=== PATIENT | male | born 1940 | race Caucasian/White ===

== ENCOUNTER 2017-01-25 18:02 | Emergency (ER) | payer MEDICARE ==
[~2017-01-25] VITALS: Ht 170.2 cm; Wt 78.0 kg
[2017-01-25 21:38] VITALS: BP 128/66
== END 2017-01-25 21:41 | disposition home or self-care (01) ==
LOC: ED 21:00
DX: F10.120 Alcohol abuse with intoxication, uncomplicated (principal); I10 Essential (primary) hypertension
CPT/HCPCS: 99283

== ENCOUNTER 2017-01-30 21:20 | Emergency (ER) | payer OTHER ==
[~2017-01-30] VITALS: Ht 170.2 cm; Wt 80.0 kg
[2017-01-30] MEDS ORDERED: ACETAMINOPHEN 500 MG TABLET PO ONE (22:00)
[2017-01-30] MEDS ORDERED: LIDOCAINE 1%, 20ML SQ ONE (22:00)
[2017-01-30] MEDS ORDERED: PLEASE ENTER ALLERGIES MC SCH ×2 (22:00)
[2017-01-30] MEDS ORDERED: LIDOCAINE 1%, 20ML ONE (22:01)
[2017-01-30] MEDS ORDERED: ACETAMINOPHEN 500 MG TABLET ONE (22:01)
[2017-01-30] MEDS ORDERED: LIDOCAINE 1%-EPI 1:100K, 20ML INFIL ONE (22:30)
[2017-01-30] MEDS ORDERED: AMOXICILLIN/CLAV 875-125MG TABLET PO ONE (23:30)
[2017-01-30] MEDS ORDERED: BACITRACIN ZINC OINT 500U/GM, 0.9 GM ONE (23:35)
[2017-01-30 23:50] VITALS: BP 158/88
== END 2017-01-30 23:58 | disposition home or self-care (01) ==
LOC: ED 21:43
DX: S02.2XXA Fracture of nasal bones, initial encounter for closed fracture (principal); S02.19XA Other fracture of base of skull, initial encounter for closed fracture; S01.81XA Laceration without foreign body of other part of head, initial encounter; I10 Essential (primary) hypertension; W06.XXXA Fall from bed, initial encounter; Y93.89 Activity, other specified; Y92.89 Other specified places as the place of occurrence of the external cause; Y99.8 Other external cause status
CPT/HCPCS: 13132; 70450; 70486; 72125

== ENCOUNTER 2017-09-25 12:50 | Emergency (ER) | payer MEDICARE, OTHER ==
[~2017-09-25] VITALS: Ht 170.2 cm; Wt 80.0 kg
[2017-09-25] MEDS ORDERED: LISI-170 PO (13:09)
[2017-09-25] MEDS ORDERED: THIAMINE 100 MG/ML, 2ML ONE (13:53)
[2017-09-25] MEDS ORDERED: THIAMINE 100 MG/ML, 2ML IM ONE (15:00)
[2017-09-25 17:23] VITALS: BP 112/59
== END 2017-09-25 18:53 | disposition home or self-care (01) ==
LOC: ED 15:39
DX: S01.81XA Laceration without foreign body of other part of head, initial encounter (principal); I10 Essential (primary) hypertension; W19.XXXA Unspecified fall, initial encounter; Y93.89 Activity, other specified; Y99.8 Other external cause status; Y92.410 Unspecified street and highway as the place of occurrence of the external cause
CPT/HCPCS: 70450; 72190; 96372; 99284; J3411

== ENCOUNTER 2017-09-28 00:41 | Inpatient (IN) | payer MEDICARE ==
[~2017-09-28] VITALS: Ht 170.2 cm; Wt 76.6 kg
[~2017-09-28 00:41] MED LIST: LISI-170 PO
[2017-09-28] MEDS ORDERED: SODIUM CHLORIDE FLUSH 10ML SYR IVF ONE (01:00)
[2017-09-28] MEDS ORDERED: DIGOXIN 0.25 MG/ML, 2ML IVPush ONE (01:00)
[2017-09-28] MEDS ORDERED: SODIUM CHLORIDE 0.9% 1,000ML IVBOLUS ONE (01:00)
[2017-09-28] MEDS ORDERED: DIGOXIN 0.25 MG/ML, 2ML ONE (01:10)
[2017-09-28 01:21] LABS: BASOPHILS # (AUTO) 0.05 x10^3/uL (0-0.1); BASOPHILS % (AUTO) 1 % (0-1); EOSINOPHILS % (AUTO) 0 % (1-7); LYMPHOCYTES # (AUTO) 1.89 x10^3/uL (1-3.4); LYMPHOCYTES % (AUTO) 19 % (22-44); MD NO; MEAN CORPUSCULAR HEMOGLOBIN 33.8 pg (27.5-34.5); MEAN CORPUSCULAR HGB CONC 33.2 g/dL (33.2-36.2); MEAN PLATELET VOLUME 8.5 fL (7.4-10.4); MONOCYTES # (AUTO) 0.66 x10^3/uL (0.2-0.8); MONOCYTES % (AUTO) 7 % (2-9); NEUTROPHILS % (AUTO) 75 % (42-75); PLATELET COUNT 219 x10^3/uL (130-400); RED BLOOD COUNT 4.52 x10^6/uL (4.38-5.82); RED CELL DISTRIBUTION WIDTH 13.9 % (9.4-14.8)
[2017-09-28 01:31] LABS: ALANINE AMINOTRANSFERASE 36 U/L (12-78); ALBUMIN 3.3 g/dL (3.4-5.0); ANION GAP 17 mmol/L (5-15); CALCIUM 8.2 mg/dL (8.5-10.1); CHLORIDE 110 mmol/L (98-107); CREATININE 1.36 mg/dL (0.7-1.3); INTERNATIONAL NORMALIZED RATIO 1.19 (0.93-1.1); PROTHROMBIN TIME 12.2 Seconds (9.6-11.5)
[2017-09-28 01:33] LABS: ALKALINE PHOSPHATASE 80 U/L (45-117); BILIRUBIN,TOTAL 0.7 mg/dL (0.2-1.0); TOTAL PROTEIN 6.7 g/dL (6.4-8.2)
[2017-09-28] MEDS ORDERED: METOPROLOL 1 MG/ML, 5ML ONE (01:35)
[2017-09-28] MEDS: METOPROLOL 1 MG/ML, 5ML IVPush ONE ×2 (01:42→04:03)
[2017-09-28 03:08] VITALS: BP 147/74
[2017-09-28] MEDS ORDERED: POTASSIUM CHLORIDE 20 MEQ, MAGNESIUM SULFATE 2 GM, THIAMINE 100 MG, MVI ADULT 10 ML, FO... IV SCH ×2 (03:20→15:00)
[2017-09-28] MEDS ORDERED: morphine SULFATE 10 MG/ML, 1ML IVPush PRN (03:30)
[2017-09-28] MEDS ORDERED: POLYETHYLENE GLYCOL 17 GM PACKET PO PRN (03:30)
[2017-09-28] MEDS ORDERED: BISACODYL 10 MG SUPP PR PRN (03:30)
[2017-09-28] MEDS ORDERED: OXYcodone IR 5MG TABLET PO PRN (03:30)
[2017-09-28] MEDS ORDERED: LABETALOL 5MG/ML, 20ML IVPush PRN (03:30)
[2017-09-28] MEDS ORDERED: ONDANSETRON 2MG/ML, 2ML IVPush PRN (03:30)
[2017-09-28] MEDS ORDERED: METOPROLOL 1 MG/ML, 5ML IVPush PRN (04:00)
[2017-09-28] MEDS ORDERED: DEXTROSE 4 GM TAB.CHEW PO PRN (04:00)
[2017-09-28] MEDS ORDERED: GLUCAGON 1 MG IM PRN (04:00)
[2017-09-28] MEDS ORDERED: DEXTROSE 50%, 50ML SYRINGE IVPush PRN (04:00)
[2017-09-28] MEDS: METOPROLOL TARTRATE 25 MG TABLET PO SCH ×3 (04:00→17:51)
[2017-09-28] MEDS: HEPARIN 5,000 UNITS/ML, 1ML SQ SCH ×3 (04:04→19:46)
[2017-09-28 04:48] VITALS: BP 147/74
[2017-09-28 04:49] LABS: MICROSCOPIC INDICATED
[2017-09-28 05:01] LABS: AMPHETAMINE SCREEN, URINE Negative (Negative); BARBITURATE SCREEN, URINE Negative (Negative); BENZODIAZEPINE SCREEN, URINE Negative (Negative); CANNABINOID SCREEN, URINE Negative (Negative); COCAINE SCREEN, URINE Negative (Negative); CULTURE INDICATED? NO; METHADONE SCREEN, URINE Negative (Negative); OPIATE SCREEN, URINE Negative (Negative)
[2017-09-28 05:09] LABS: ALBUMIN 3.2 g/dL (3.4-5.0); ANION GAP 16 mmol/L (5-15); CALCIUM 7.9 mg/dL (8.5-10.1); CHLORIDE 111 mmol/L (98-107)
[2017-09-28 05:13] LABS: BASOPHILS # (AUTO) 0.03 x10^3/uL (0-0.1); BASOPHILS % (AUTO) 0 % (0-1); EOSINOPHILS % (AUTO) 0 % (1-7); LYMPHOCYTES # (AUTO) 1.08 x10^3/uL (1-3.4); LYMPHOCYTES % (AUTO) 13 % (22-44); MD NO; MEAN CORPUSCULAR HEMOGLOBIN 34.6 pg (27.5-34.5); MEAN CORPUSCULAR HGB CONC 33.9 g/dL (33.2-36.2); MEAN CORPUSCULAR VOLUME 102.1 fL (81-97); MEAN PLATELET VOLUME 8.8 fL (7.4-10.4); MONOCYTES # (AUTO) 0.59 x10^3/uL (0.2-0.8); MONOCYTES % (AUTO) 7 % (2-9); NEUTROPHILS # (AUTO) 6.43 x10^3/uL (1.8-6.8); NEUTROPHILS % (AUTO) 79 % (42-75); PLATELET COUNT 180 x10^3/uL (130-400); RED BLOOD COUNT 4.42 x10^6/uL (4.38-5.82); RED CELL DISTRIBUTION WIDTH 13.6 % (9.4-14.8)
[2017-09-28 05:17] LABS: HEMOGLOBIN A1C 4.9 % (4.2-6.3)
[2017-09-28 05:34] LABS: ALANINE AMINOTRANSFERASE 36 U/L (12-78); ALKALINE PHOSPHATASE 77 U/L (45-117); BILIRUBIN,TOTAL 0.8 mg/dL (0.2-1.0); CREATININE 1.09 mg/dL (0.7-1.3); FREE T4 (FREE THYROXINE) 1.09 ng/dL (0.76-1.46); THYROID STIMULATING HORMONE 0.726 mIU/L (0.358-3.740); TOTAL PROTEIN 6.6 g/dL (6.4-8.2)
[2017-09-28] MEDS: ASPIRIN 325 MG TABLET EC PO SCH (06:13)
[2017-09-28 06:32] VITALS: BP 160/92
[2017-09-28 12:24] VITALS: BP 192/90
[2017-09-28] MEDS: SODIUM CHLORIDE FLUSH 10ML SYR IVF SCH ×2 (12:32→19:46)
[2017-09-28] MEDS: SENNA/DOCUSATE TABLET PO SCH (12:32)
[2017-09-28] MEDS: hydrALAzine 20 MG/ML, 1ML IVPush PRN ×2 (12:33→19:47)
[2017-09-28 12:40] VITALS: BP 178/79
[2017-09-28] MEDS ORDERED: D5%-0.45% NACL 1,000 ML IV SCH (15:30)
[2017-09-28] MEDS ORDERED: LISINOPRIL 20 MG TABLET PO ONE (15:30)
[2017-09-28] MEDS: CHLORDIAZEPOXIDE 25 MG CAPSULE PO SCH (18:23)
[2017-09-28] MEDS ORDERED: LORazepam 2 MG/ML, 1ML IVPush PRN (18:30)
[2017-09-28 18:52] VITALS: BP 191/94
[2017-09-29 01:51] VITALS: BP 174/87
[2017-09-29] MEDS: CHLORDIAZEPOXIDE 25 MG CAPSULE PO SCH ×2 (02:30→09:28)
[2017-09-29] MEDS: HEPARIN 5,000 UNITS/ML, 1ML SQ SCH ×2 (02:48→11:09)
[2017-09-29 05:50] VITALS: BP 187/85
[2017-09-29] MEDS: ASPIRIN 325 MG TABLET EC PO SCH (05:53)
[2017-09-29] MEDS: METOPROLOL TARTRATE 25 MG TABLET PO SCH (05:53)
[2017-09-29 06:04] LABS: BASOPHILS # (AUTO) 0.02 x10^3/uL (0-0.1); BASOPHILS % (AUTO) 0 % (0-1); EOSINOPHILS # (AUTO) 0.05 x10^3/uL (0-0.4); EOSINOPHILS % (AUTO) 1 % (1-7); LYMPHOCYTES # (AUTO) 2.38 x10^3/uL (1-3.4); LYMPHOCYTES % (AUTO) 35 % (22-44); MD NO; MEAN CORPUSCULAR HEMOGLOBIN 34.3 pg (27.5-34.5); MEAN CORPUSCULAR HGB CONC 33.5 g/dL (33.2-36.2); MEAN CORPUSCULAR VOLUME 102.2 fL (81-97); MEAN PLATELET VOLUME 8.6 fL (7.4-10.4); MONOCYTES # (AUTO) 0.78 x10^3/uL (0.2-0.8); MONOCYTES % (AUTO) 11 % (2-9); NEUTROPHILS % (AUTO) 53 % (42-75); PLATELET COUNT 144 x10^3/uL (130-400); RED BLOOD COUNT 3.96 x10^6/uL (4.38-5.82); RED CELL DISTRIBUTION WIDTH 13.2 % (9.4-14.8)
[2017-09-29 06:12] LABS: CHLORIDE 108 mmol/L (98-107)
[2017-09-29 06:21] LABS: ANION GAP 7 mmol/L (5-15); CALCIUM 7.9 mg/dL (8.5-10.1); CHOL/HDL RATIO 2.6; CHOLESTEROL, TOTAL 100 mg/dL (140-239); CREATININE 0.77 mg/dL (0.7-1.3); HDL CHOL % 39 % (26-37); HDL CHOLESTEROL (DIRECT) 39 mg/dL (40-60); LDL CHOLESTEROL,CALCULATED 46 mg/dL (54-169); LDL/HDL RATIO 1.2 (0.5-3.0); TRIGLYCERIDES 75 mg/dL (50-200); VLDL CHOLESTEROL 15 mg/dL (0-25)
[2017-09-29] MEDS ORDERED: POTASSIUM CHLORIDE 20 MEQ TAB.ER.PRT PO ONE (07:00)
[2017-09-29 07:31] VITALS: BP 189/88
[2017-09-29] MEDS ORDERED: LISINOPRIL 20 MG TABLET PO SCH (09:00)
[2017-09-29] MEDS: SENNA/DOCUSATE TABLET PO SCH (09:00)
[2017-09-29] MEDS: SODIUM CHLORIDE FLUSH 10ML SYR IVF SCH (09:28)
[2017-09-29 09:33] VITALS: BP 170/84
[2017-09-29] MEDS ORDERED: LISINOPRIL 20 MG TABLET PO ONE (11:00)
[2017-09-29] MEDS ORDERED: ERGOCALCIFEROL 50,000 UNIT CAPSULE PO ONE (11:00)
[2017-09-29 11:08] VITALS: BP 166/84
[2017-09-29] MEDS ORDERED: PNEUMOCOCCAL 23 VACCINE IM-VACC ONE (11:30)
[2017-09-29] MEDS ORDERED: METO25TA35 PO (11:47)
[2017-09-29] MEDS ORDERED: LISI-170 PO (11:47)
[2017-09-29 13:02] VITALS: BP 176/74
[2017-09-29] MEDS ORDERED: METOPROLOL TARTRATE 25 MG TABLET PO SCH (18:00)
[2017-09-30] MEDS ORDERED: LISINOPRIL 20 MG TABLET PO SCH (09:00)
== END 2017-09-29 13:34 | disposition home or self-care (01) | DRG 896 ==
LOC: ED 01:32 → EDIP 01:56 → 5SO 03:05
PROVIDERS: ADMIT Internal Medicine; ATTEND Internal Medicine
DX: F10.239 Alcohol dependence with withdrawal, unspecified (principal); N17.0 Acute kidney failure with tubular necrosis; F10.229 Alcohol dependence with intoxication, unspecified; E87.0 Hyperosmolality and hypernatremia; I48.0 Paroxysmal atrial fibrillation; E44.0 Moderate protein-calorie malnutrition; D68.59 Other primary thrombophilia; D75.89 Other specified diseases of blood and blood-forming organs; D72.829 Elevated white blood cell count, unspecified; E16.2 Hypoglycemia, unspecified; Z68.26 Body mass index [BMI] 26.0-26.9, adult; I10 Essential (primary) hypertension; Z79.899 Other long term (current) drug therapy; Z87.891 Personal history of nicotine dependence; Z91.14 Patient's other noncompliance with medication regimen
CPT/HCPCS: 36415; 71045; 80048; 80053; 80061; 80307; 81001; 82306; 82607; 83036; 83735; 84439; 84443; 85025; 85610; 85730; 90732; 93005; 93306; 96374; J1644; J3411; J3475; J3480; J7042; J0360; J1160; J7030

== ENCOUNTER 2017-09-29 19:30 | Emergency (ER) | payer MEDICARE ==
[~2017-09-29] VITALS: Ht 170.2 cm; Wt 75.9 kg
[~2017-09-29 19:30] MED LIST changes: +METO25TA35 PO
[2017-09-29 19:31] VITALS: BP 156/79
== END 2017-09-29 20:05 | disposition left against medical advice (07) ==
LOC: ED 19:52
DX: Z53.21 Procedure and treatment not carried out due to patient leaving prior to being seen by health care provider (principal)

== ENCOUNTER 2017-12-27 16:39 | Emergency (ER) | payer MEDICARE ==
[~2017-12-27] VITALS: Ht 170.2 cm; Wt 76.6 kg
[2017-12-27] MEDS ORDERED: HYDROcodone/APAP 5/325 TABLET ONE (17:56)
[2017-12-27] MEDS ORDERED: HYDROcodone/APAP 5/325 TABLET PO ONE (18:00)
[2017-12-27] MEDS ORDERED: LOSA50TA6 PO (18:14)
[2017-12-27 18:44] VITALS: BP 139/81
== END 2017-12-27 18:49 | disposition home or self-care (01) ==
LOC: ED 18:29
DX: S39.012A Strain of muscle, fascia and tendon of lower back, initial encounter (principal); S29.012A Strain of muscle and tendon of back wall of thorax, initial encounter; I48.91 Unspecified atrial fibrillation; M19.90 Unspecified osteoarthritis, unspecified site; W01.0XXA Fall on same level from slipping, tripping and stumbling without subsequent striking against object, initial encounter; Y93.89 Activity, other specified; Y99.8 Other external cause status; Y92.89 Other specified places as the place of occurrence of the external cause
CPT/HCPCS: 72110; 99284

== ENCOUNTER 2019-06-15 05:24 | Emergency (ER) | payer MEDICARE ==
[~2019-06-15] VITALS: Ht 170.2 cm; Wt 78.0 kg
[~2019-06-15 05:24] MED LIST changes: +LOSA50TA14 PO
--- NOTE | 2019-06-15 05:37 | NUR ---
Patient brought to room by EMS. Patient is brought from the [facility] for a sharp increase in back pain. Patient has a known history of orthopedic back issues. Patient reports having a recent fall three days prior but with no changes in pain till today. Patient triage complete, patient attached to a blood pressure cuff and pulsatile oxygenation all within normal limits. Resident to bedside to assess patient. Patient also reports brief episode of urinary incontinence but also reports has had this issue prior with known prostate complaints. Awaiting provider orders.
--- NOTE | 2019-06-15 06:06 | NUR ---
Urinalysis order placed by provider. RN discussed with provider patient has alread voided just prior to transfer. RN returned to bedside, informed patient of need for urinalysis, confirms he had just voided. RN informed patient a urinalysis was ordered and to call the RN when he felt he could provide a sample. RN provided patient with call light. Awaiting CXR and call for urinalysis.
[2019-06-15 08:03] LABS: MICROSCOPIC INDICATED
[2019-06-15] MEDS ORDERED: MORPHINE SULFATE 4 MG/ML, 1ML ONE ×2 (09:40→09:41)
[2019-06-15 11:40] VITALS: BP 150/102
== END 2019-06-15 11:42 | disposition home or self-care (01) ==
LOC: ED 05:40
DX: S39.012A Strain of muscle, fascia and tendon of lower back, initial encounter (principal); I10 Essential (primary) hypertension; W18.39XA Other fall on same level, initial encounter; Y93.89 Activity, other specified; Y92.413 State road as the place of occurrence of the external cause; Y99.8 Other external cause status
CPT/HCPCS: 71046; 72110; 81001; 99284

== ENCOUNTER 2019-06-17 11:20 | Emergency (ER) | payer MEDICARE ==
[~2019-06-17] VITALS: Ht 170.2 cm; Wt 74.9 kg
--- NOTE | 2019-06-17 11:43 | NUR ---
LOUNGING ON ED BED, SOME WORDS SLURRED. HX OF FALLS, LOWER BACKS INJURIES, CHRONIC LOW BACK & LEG PAIN. STATES PAIN IS WORSE TODAY.
[2019-06-17] MEDS ORDERED: METHOCARBAMOL 750 MG TABLET ONE (12:10)
[2019-06-17] MEDS ORDERED: HYDROcodone/APAP 5/325 TABLET ONE (12:10)
[2019-06-17 12:24] LABS: LYMPHOCYTES % (AUTO) 24 % (22-44); MEAN CORPUSCULAR HEMOGLOBIN 33.5 pg (27.5-34.5); MEAN CORPUSCULAR HGB CONC 32.9 g/dL (33.2-36.2); MEAN CORPUSCULAR VOLUME 101.9 fL (81-97); MEAN PLATELET VOLUME 7.1 fL (7.4-10.4); MONOCYTES % (AUTO) 12 % (2-9); NEUTROPHILS % (AUTO) 63 % (42-75); PLATELET COUNT 239 x10^3/uL (130-400); RED BLOOD COUNT 3.73 x10^6/uL (4.38-5.82); RED CELL DISTRIBUTION WIDTH 15.1 % (9.4-14.8)
--- NOTE | 2019-06-17 12:24 | NUR ---
LABS DRAWN. NORCO & ROBAXIN GIVEN PER EMAR. PT NOTIFIED OF NEED FOR URINE SPECIMEN; URINAL PROVIDED. PT ASSISTED INTO GOWN; C/O LOW BACK PAIN W/ MOVMENT.
[2019-06-17 12:25] LABS: BASOPHILS # (AUTO) 0.03 x10^3/uL (0-0.1); BASOPHILS % (AUTO) 0 % (0-1); EOSINOPHILS # (AUTO) 0.05 x10^3/uL (0-0.4); EOSINOPHILS % (AUTO) 1 % (1-7); LYMPHOCYTES # (AUTO) 1.62 x10^3/uL (1-3.4); MD NO; MONOCYTES # (AUTO) 0.82 x10^3/uL (0.2-0.8)
[2019-06-17] MEDS ORDERED: METHOCARBAMOL 750 MG TABLET PO ONE (12:30)
[2019-06-17] MEDS ORDERED: HYDROcodone/APAP 5/325 TABLET PO ONE (12:30)
--- NOTE | 2019-06-17 12:34 | NUR ---
COMPLETED MRI FORM FAXED TO MRI DEPT
[2019-06-17 12:37] LABS: ALBUMIN 2.8 g/dL (3.4-5.0); ANION GAP 6 mmol/L (5-15); CALCIUM 8.4 mg/dL (8.5-10.1); CHLORIDE 105 mmol/L (98-107); CREATININE 0.88 mg/dL (0.7-1.3)
--- NOTE | 2019-06-17 14:21 | NUR ---
RESTING QUIETLY ON BED, TALKING W/ FRIEND. REPORTS IMPROVEMENT IN PAIN LEVEL - WORSENS W/ MOVEMENT.
[2019-06-17 14:22] VITALS: BP 138/100
--- NOTE | 2019-06-17 14:46 | NUR ---
AMBULATORY TO [facility] USING WALKER; GAIT SLOW & SHUFFLING, C/O PAIN W/ POSITION CHANGES. VOIDED URINE SPECIMEN PROVIDED; WILL BE SENT TO LAB.
[2019-06-17 15:20] LABS: MICROSCOPIC AUTO
[2019-06-17 15:22] LABS: CULTURE INDICATED? NO
[2019-06-17] MEDS ORDERED: ACETAMINOPHEN 325 MG TABLET PO ONE (16:00)
[2019-06-17] MEDS ORDERED: ACETAMINOPHEN 325 MG TABLET ONE (16:07)
--- NOTE | 2019-06-17 16:10 | NUR ---
TYLENOL GIVEN PER EMAR.
--- NOTE | 2019-06-17 16:29 | NUR ---
PT DISCHARGED PER OSUMANE Nelson RN. PT AMBULATORY USING WALKER.
== END 2019-06-17 16:31 | disposition home or self-care (01) ==
LOC: ED 14:05
DX: S39.012A Strain of muscle, fascia and tendon of lower back, initial encounter (principal); R31.29 Other microscopic hematuria; M54.2 Cervicalgia; I10 Essential (primary) hypertension; I48.91 Unspecified atrial fibrillation; Z87.891 Personal history of nicotine dependence; W18.39XA Other fall on same level, initial encounter; Y93.89 Activity, other specified; Y92.89 Other specified places as the place of occurrence of the external cause; Y99.8 Other external cause status
CPT/HCPCS: 36415; 72148; 80048; 81001; 82040; 85025; 99284

== ENCOUNTER 2019-06-21 02:40 | Emergency (ER) | payer MEDICARE ==
[~2019-06-21] VITALS: Ht 175.3 cm; Wt 78.0 kg
--- NOTE | 2019-06-21 02:50 | NUR ---
PT ARRIVS VIA [facility] WITH 2 RX FOR PAIN CONTROL WRITTEN FROM HERE AND UNFILLED.
--- NOTE | 2019-06-21 03:09 | NUR ---
SPO2 87% RA, O2 PLACED NASALLY CANULA IN MOUTH 4L PT MOUTH BREATHER. AWAKENS VERBAL, NAD. ODOR ETOH
[2019-06-21] MEDS ORDERED: KETOROLAC 30 MG/1 ML ONE (03:19)
--- NOTE | 2019-06-21 03:25 | NUR ---
PT TAKEN TO RADIOLOGY WITH TECH AT THIS TIME.
[2019-06-21] MEDS ORDERED: KETOROLAC 30 MG/1 ML IM ONE (03:30)
--- NOTE | 2019-06-21 05:03 | NUR ---
REPORT RECEIVED, CARE ASSUMED. PT LAYING ON GURNEY SLEEPING. WAITING FOR TEST RESULTS.
--- NOTE | 2019-06-21 06:09 | NUR ---
PATIENT AWAKE AND ALERT, DRESSED HIMSELF UP. DISCHARGED WITH INSTRUCTION. PATIENT AMBULATED WITH OWN WALKER.
[2019-06-21 06:10] VITALS: BP 130/69
== END 2019-06-21 06:12 | disposition home or self-care (01) ==
LOC: ED 02:45
DX: S39.012A Strain of muscle, fascia and tendon of lower back, initial encounter (principal); I10 Essential (primary) hypertension; I48.91 Unspecified atrial fibrillation; Z72.89 Other problems related to lifestyle; W01.0XXA Fall on same level from slipping, tripping and stumbling without subsequent striking against object, initial encounter; Y93.89 Activity, other specified; Y92.89 Other specified places as the place of occurrence of the external cause; Y99.8 Other external cause status
CPT/HCPCS: 72110; 96372; 99283; J1885

== ENCOUNTER 2019-07-15 15:42 | Inpatient (IN) | payer MEDICARE, MEDICAID ==
[~2019-07-15] VITALS: Ht 170.2 cm; Wt 73.6 kg
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
--- NOTE | 2019-07-15 16:28 | NUR ---
pt resting in position of comfort. dozing intermittently
--- NOTE | 2019-07-15 16:37 | NUR ---
pt has been sleeping. easily arousable. Dr Gillis at bedside for eval. per MD pt has had mulitple falls in the last few months
--- NOTE | 2019-07-15 16:46 | NUR ---
lab at bedside to draw
[2019-07-15 16:59] LABS: BASOPHILS # (AUTO) 0.03 x10^3/uL (0-0.1); BASOPHILS % (AUTO) 0 % (0-1); EOSINOPHILS # (AUTO) 0.18 x10^3/uL (0-0.4); EOSINOPHILS % (AUTO) 2 % (1-7); LYMPHOCYTES # (AUTO) 3.13 x10^3/uL (1-3.4); LYMPHOCYTES % (AUTO) 35 % (22-44); MD NO; MEAN CORPUSCULAR HEMOGLOBIN 33.7 pg (27.5-34.5); MEAN PLATELET VOLUME 8.6 fL (7.4-10.4); MONOCYTES # (AUTO) 0.78 x10^3/uL (0.2-0.8); MONOCYTES % (AUTO) 9 % (2-9); NEUTROPHILS # (AUTO) 4.78 x10^3/uL (1.8-6.8); NEUTROPHILS % (AUTO) 54 % (42-75); PLATELET COUNT 219 x10^3/uL (130-400); RED BLOOD COUNT 4.22 x10^6/uL (4.38-5.82); RED CELL DISTRIBUTION WIDTH 14.8 % (9.4-14.8)
[2019-07-15] MEDS ORDERED: SODIUM CHLORIDE FLUSH 10ML SYR IVF ONE (17:00)
[2019-07-15 17:08] LABS: ALANINE AMINOTRANSFERASE 34 U/L (12-78); ALBUMIN 3.4 g/dL (3.4-5.0); ANION GAP 10 mmol/L (5-15); CALCIUM 8.6 mg/dL (8.5-10.1); CHLORIDE 107 mmol/L (98-107); CREATININE 0.93 mg/dL (0.7-1.3)
[2019-07-15 17:10] LABS: ALKALINE PHOSPHATASE 177 U/L (45-117); BILIRUBIN,TOTAL 0.5 mg/dL (0.2-1.0); TOTAL PROTEIN 7.5 g/dL (6.4-8.2)
--- NOTE | 2019-07-15 17:24 | NUR ---
pt to RAD
[2019-07-15 17:30] LABS: INTERNATIONAL NORMALIZED RATIO 1.07 (0.93-1.1); PROTHROMBIN TIME 11.4 Seconds (9.6-11.5)
--- NOTE | 2019-07-15 17:53 | NUR ---
pt returned from RAD. incontinent of urine. pt cleaned and fresh linen applied. posterior skin intact upon inspection. tolerated well. positioning warm blankets given and lights dimmed for comfort
--- NOTE | 2019-07-15 18:32 | NUR ---
pt sleeping. no new c/o
--- NOTE | 2019-07-15 19:00 | NUR ---
report from ayaan mccormick
--- NOTE | 2019-07-15 19:01 | NUR ---
no changes. report to Yessi ROA
[2019-07-15] MEDS ORDERED: SODIUM CHLORIDE 0.9% 1,000 ML IV SCH (20:13)
[2019-07-15] MEDS ORDERED: morphine SULFATE 10 MG/ML, 1ML IVPush PRN (20:30)
[2019-07-15] MEDS ORDERED: ONDANSETRON ODT 4 MG PO PRN (20:30)
[2019-07-15] MEDS ORDERED: POLYETHYLENE GLYCOL 17 GM PACKET PO PRN (20:30)
[2019-07-15] MEDS ORDERED: BISACODYL 10 MG SUPP PR PRN (20:30)
[2019-07-15] MEDS ORDERED: hydrALAzine 20 MG/ML, 1ML IVPush PRN (20:30)
[2019-07-15] MEDS ORDERED: ONDANSETRON 2MG/ML, 2ML IVPush PRN (20:30)
[2019-07-15] MEDS ORDERED: PROMETHAZINE 25 MG/ML, 1ML IM PRN (20:30)
--- NOTE | 2019-07-15 20:33 | NUR ---
carrie, supervisor [facility] on admitting floor said they will call me to recieve report when the room is clean for pt.
[2019-07-15 21:09] LABS: FREE T4 (FREE THYROXINE) 1.71 ng/dL (0.76-1.46)
[2019-07-15 22:00] VITALS: BP 138/74
[2019-07-15] MEDS: METOPROLOL TARTRATE 25 MG TABLET PO SCH (22:47)
[2019-07-15 23:36] LABS: MICROSCOPIC NOT IND
[2019-07-15 23:53] LABS: CULTURE INDICATED? NO
[2019-07-16] VITALS (9 sets, daily range): BP systolic 105–150; BP diastolic 47–81
[2019-07-16 04:41] LABS: BASOPHILS # (AUTO) 0.05 x10^3/uL (0-0.1); BASOPHILS % (AUTO) 1 % (0-1); EOSINOPHILS # (AUTO) 0.13 x10^3/uL (0-0.4); EOSINOPHILS % (AUTO) 2 % (1-7); LYMPHOCYTES # (AUTO) 1.89 x10^3/uL (1-3.4); LYMPHOCYTES % (AUTO) 24 % (22-44); MD NO; MEAN CORPUSCULAR HEMOGLOBIN 33.4 pg (27.5-34.5); MEAN CORPUSCULAR VOLUME 101.4 fL (81-97); MONOCYTES % (AUTO) 12 % (2-9); NEUTROPHILS # (AUTO) 4.91 x10^3/uL (1.8-6.8); NEUTROPHILS % (AUTO) 62 % (42-75); PLATELET COUNT 210 x10^3/uL (130-400); RED BLOOD COUNT 3.94 x10^6/uL (4.38-5.82)
[2019-07-16 04:44] LABS: ALANINE AMINOTRANSFERASE 27 U/L (12-78); ALBUMIN 3.2 g/dL (3.4-5.0); ANION GAP 8 mmol/L (5-15); CALCIUM 8.7 mg/dL (8.5-10.1); CHLORIDE 110 mmol/L (98-107); CHOLESTEROL, TOTAL 134 mg/dL (140-239); CREATININE 0.74 mg/dL (0.7-1.3)
[2019-07-16 04:47] LABS: ALKALINE PHOSPHATASE 156 U/L (45-117); BILIRUBIN,TOTAL 0.6 mg/dL (0.2-1.0); CHOL/HDL RATIO 3.6; HDL CHOL % 28 % (26-37); HDL CHOLESTEROL (DIRECT) 37 mg/dL (40-60); LDL CHOLESTEROL,CALCULATED 82 mg/dL (54-169); LDL/HDL RATIO 2.2 (0.5-3.0); TOTAL PROTEIN 6.8 g/dL (6.4-8.2); TRIGLYCERIDES 76 mg/dL (50-200); VLDL CHOLESTEROL 15 mg/dL (0-25)
[2019-07-16] MEDS ORDERED: LORazepam 0.5MG TABLET PO PRN (09:00)
[2019-07-16] MEDS ORDERED: ERGOCALCIFEROL 50,000 UNIT CAPSULE PO SCH (09:00)
[2019-07-16] MEDS ORDERED: LORazepam 2 MG/ML, 1ML IV PRN ×5 (09:00)
[2019-07-16] MEDS ORDERED: LORazepam 1MG TABLET PO PRN ×4 (09:00)
[2019-07-16] MEDS: METOPROLOL TARTRATE 25 MG TABLET PO SCH ×2 (09:20→20:17)
[2019-07-16] MEDS: LISINOPRIL 20 MG TABLET PO SCH (09:20)
[2019-07-16] MEDS ORDERED: MIDAZOLAM 1 MG/ML, 2ML ONE (09:58)
[2019-07-16] MEDS ORDERED: FENTANYL PF 250 MCG/5ML ONE (09:58)
[2019-07-16] MEDS ORDERED: OXYcodone 5 MG/5 ML ORAL.SOL UDC PO PRN (10:30)
[2019-07-16] MEDS ORDERED: HYDROmorphone 2 MG/ML, 1ML IVPush PRN (10:30)
[2019-07-16] MEDS ORDERED: hydrALAzine 20 MG/ML, 1ML IV PRN (10:30)
[2019-07-16] MEDS ORDERED: LORazepam 2 MG/ML, 1ML IVPush PRN (10:30)
[2019-07-16] MEDS ORDERED: LABETALOL 5MG/ML, 20ML IV PRN (10:30)
[2019-07-16] MEDS ORDERED: ACETAMINOPHEN 325 MG TABLET PO PRN (10:30)
[2019-07-16] MEDS ORDERED: ONDANSETRON 2MG/ML, 2ML IV PRN (10:30)
[2019-07-16] MEDS ORDERED: ONDANSETRON ODT 8 MG PO PRN (10:30)
[2019-07-16] MEDS ORDERED: PROMETHAZINE 25 MG SUPP PR PRN (10:30)
[2019-07-16] MEDS ORDERED: PROMETHAZINE 25 MG/ML, 1ML IV PRN (10:30)
[2019-07-16] MEDS ORDERED: ROCURONIUM 10MG/ML,5ML ONE (10:52)
[2019-07-16] MEDS ORDERED: ONDANSETRON 2MG/ML, 2ML ONE (10:52)
[2019-07-16] MEDS ORDERED: PROPOFOL 10 MG/ML, 20ML ONE (10:52)
[2019-07-16] MEDS ORDERED: DEXAMETHASONE 4 MG/ML, 1ML ONE (10:52)
[2019-07-16] MEDS ORDERED: SUCCINYLCHOLINE 20 MG/ML, 10ML ONE (10:52)
[2019-07-16] MEDS ORDERED: GLYCOPYRROLATE 0.2MG/1ML, 5ML ONE (10:52)
[2019-07-16] MEDS ORDERED: NEOSTIGMINE 1 MG/ML, 10ML ONE (10:52)
[2019-07-16] MEDS ORDERED: CEFAZOLIN 1,000 MG ONE (10:52)
[2019-07-16] MEDS: FENTANYL PF 100 MCG/2ML IV PRN ×3 (11:15→11:25)
[2019-07-16] MEDS ORDERED: FENTANYL PF 100 MCG/2ML ONE (11:17)
[2019-07-16] MEDS ORDERED: OXYcodone 5 MG/5 ML ORAL.SOL UDC ONE (11:17)
[2019-07-16] MEDS: SODIUM CHLORIDE 0.9% 1,000 ML IV SCH ×2 (13:01→22:52)
[2019-07-16] MEDS: OXYcodone IR 5MG TABLET PO PRN (17:42)
[2019-07-16] MEDS ORDERED: SODIUM CHLORIDE 0.9% 1,000 ML IV SCH (20:13)
[2019-07-17 00:36] VITALS: BP 132/70
[2019-07-17] MEDS: OXYcodone IR 5MG TABLET PO PRN ×5 (03:23→21:51)
[2019-07-17 03:27] VITALS: BP 166/83
[2019-07-17 05:09] LABS: BASOPHILS # (AUTO) 0.01 x10^3/uL (0-0.1); BASOPHILS % (AUTO) 0 % (0-1); EOSINOPHILS # (AUTO) 0.08 x10^3/uL (0-0.4); EOSINOPHILS % (AUTO) 1 % (1-7); LYMPHOCYTES # (AUTO) 1.69 x10^3/uL (1-3.4); LYMPHOCYTES % (AUTO) 17 % (22-44); MD NO; MEAN CORPUSCULAR HEMOGLOBIN 33.6 pg (27.5-34.5); MEAN CORPUSCULAR HGB CONC 33.1 g/dL (33.2-36.2); MEAN CORPUSCULAR VOLUME 101.7 fL (81-97); MONOCYTES # (AUTO) 1.42 x10^3/uL (0.2-0.8); MONOCYTES % (AUTO) 14 % (2-9); NEUTROPHILS % (AUTO) 68 % (42-75); PLATELET COUNT 162 x10^3/uL (130-400); RED BLOOD COUNT 3.13 x10^6/uL (4.38-5.82); RED CELL DISTRIBUTION WIDTH 14.6 % (9.4-14.8)
[2019-07-17 05:14] LABS: ANION GAP 3 mmol/L (5-15); CALCIUM 8.2 mg/dL (8.5-10.1); CHLORIDE 110 mmol/L (98-107)
[2019-07-17] MEDS: ENOXAPARIN 40 MG/0.4 ML SQ SCH (06:00)
[2019-07-17 07:23] VITALS: BP 151/65
[2019-07-17] MEDS: METOPROLOL TARTRATE 25 MG TABLET PO SCH ×2 (08:31→21:51)
[2019-07-17] MEDS: LISINOPRIL 20 MG TABLET PO SCH (08:31)
[2019-07-17] MEDS: SODIUM CHLORIDE 0.9% 1,000 ML IV SCH ×2 (08:32→17:59)
[2019-07-17] MEDS: ACETAMINOPHEN 325 MG TABLET PO PRN ×2 (08:40→21:51)
[2019-07-17] MEDS ORDERED: LOSARTAN 50MG TABLET PO SCH (09:00)
[2019-07-17 14:41] VITALS: BP 110/58
[2019-07-17 19:34] VITALS: BP 116/57
[2019-07-17] MEDS: DOCUSATE 100 MG CAPSULE PO PRN (22:07)
[2019-07-18 01:45] VITALS: BP 139/78
[2019-07-18] MEDS: SODIUM CHLORIDE 0.9% 1,000 ML IV SCH ×2 (02:54→12:48)
[2019-07-18] MEDS: ACETAMINOPHEN 325 MG TABLET PO PRN ×2 (04:27→08:11)
[2019-07-18] MEDS: OXYcodone IR 5MG TABLET PO PRN ×3 (04:28→12:48)
[2019-07-18] MEDS: ENOXAPARIN 40 MG/0.4 ML SQ SCH (05:07)
[2019-07-18 06:53] VITALS: BP 157/77
[2019-07-18] MEDS: METOPROLOL TARTRATE 25 MG TABLET PO SCH ×2 (08:11→21:35)
[2019-07-18] MEDS: LISINOPRIL 20 MG TABLET PO SCH (08:11)
[2019-07-18] MEDS: DOCUSATE 100 MG CAPSULE PO PRN (08:12)
[2019-07-18] MEDS: KETOROLAC 30 MG/1 ML IVPush SCH ×3 (10:36→22:26)
[2019-07-18 12:45] VITALS: BP 124/53
[2019-07-18 21:29] VITALS: BP 149/70
[2019-07-18] MEDS: APIXABAN 5 MG TABLET PO SCH (21:35)
[2019-07-19 01:13] VITALS: BP 169/80
[2019-07-19] MEDS: KETOROLAC 30 MG/1 ML IVPush SCH ×4 (04:28→22:46)
[2019-07-19] MEDS: OXYcodone IR 5MG TABLET PO PRN ×4 (06:19→20:56)
[2019-07-19 08:26] VITALS: BP 166/78
[2019-07-19 10:13] VITALS: BP 175/80
[2019-07-19] MEDS: APIXABAN 5 MG TABLET PO SCH ×2 (10:15→20:50)
[2019-07-19] MEDS: LISINOPRIL 20 MG TABLET PO SCH (10:16)
[2019-07-19] MEDS: METOPROLOL TARTRATE 25 MG TABLET PO SCH ×2 (10:17→20:50)
[2019-07-19 12:56] VITALS: BP 135/71
[2019-07-19] MEDS ORDERED: OXYC5TAB3 PO (13:35)
[2019-07-19] MEDS ORDERED: POLY17PO5 PO (13:35)
[2019-07-19] MEDS ORDERED: ERGO500017 PO (13:35)
[2019-07-19] MEDS ORDERED: APIX5TAB PO (13:35)
[2019-07-19] MEDS ORDERED: TRAM50TA2 PO (13:35)
[2019-07-19] MEDS ORDERED: ONDA4TAB13 PO (13:35)
[2019-07-19 13:50] VITALS: BP 136/77
[2019-07-19 19:26] VITALS: BP 135/72
[2019-07-20 02:20] VITALS: BP 150/67
[2019-07-20] MEDS: KETOROLAC 30 MG/1 ML IVPush SCH ×4 (05:07→22:16)
[2019-07-20 07:32] VITALS: BP 175/78
[2019-07-20] MEDS: METOPROLOL TARTRATE 25 MG TABLET PO SCH ×2 (08:00→20:31)
[2019-07-20] MEDS: APIXABAN 5 MG TABLET PO SCH ×2 (08:03→20:31)
[2019-07-20] MEDS: OXYcodone IR 5MG TABLET PO PRN (08:03)
[2019-07-20] MEDS: LISINOPRIL 20 MG TABLET PO SCH (08:05)
[2019-07-20] MEDS ORDERED: SIMV10TA PO (08:49)
[2019-07-20] MEDS ORDERED: TRAM50TA2 PO (11:27)
[2019-07-20 13:05] VITALS: BP 144/74
[2019-07-20 20:14] VITALS: BP 181/88
[2019-07-20 23:00] VITALS: BP 155/95
[2019-07-21 02:17] VITALS: BP 142/88
[2019-07-21] MEDS: KETOROLAC 30 MG/1 ML IVPush SCH ×3 (04:39→16:14)
[2019-07-21 06:36] VITALS: BP 158/90
[2019-07-21 09:30] VITALS: BP 141/78
[2019-07-21] MEDS: OXYcodone IR 5MG TABLET PO PRN (09:30)
[2019-07-21] MEDS: APIXABAN 5 MG TABLET PO SCH (09:30)
[2019-07-21] MEDS: METOPROLOL TARTRATE 25 MG TABLET PO SCH (09:31)
[2019-07-21] MEDS: LISINOPRIL 20 MG TABLET PO SCH (09:31)
[2019-07-21 13:40] VITALS: BP 109/65
== END 2019-07-21 18:41 | DRG 481 ==
LOC: ED 18:22 → EDIP 20:13 → 4NE 21:20
PROVIDERS: ADMIT Internal Medicine; ATTEND Internal Medicine
PROC: 0QS606Z Reposition Right Upper Femur with Intramedullary Internal Fixation Device, Open Approach (ICD-10-PCS; principal; 2019-07-16 10:00)
DX: S72.141A Displaced intertrochanteric fracture of right femur, initial encounter for closed fracture (principal); D68.69 Other thrombophilia; F10.120 Alcohol abuse with intoxication, uncomplicated; I11.9 Hypertensive heart disease without heart failure; I48.0 Paroxysmal atrial fibrillation; M51.36 Other intervertebral disc degeneration, lumbar region; W01.0XXA Fall on same level from slipping, tripping and stumbling without subsequent striking against object, initial encounter; Y93.89 Activity, other specified; Y92.89 Other specified places as the place of occurrence of the external cause; Y99.8 Other external cause status; Y90.7 Blood alcohol level of 200-239 mg/100 ml; Z59.0 Homelessness; Z79.01 Long term (current) use of anticoagulants; Z87.891 Personal history of nicotine dependence; Z91.19 Patient's noncompliance with other medical treatment and regimen
CPT/HCPCS: 36415; 71045; 76000; 80048; 80053; 80061; 80307; 81003; 82306; 82607; 83036; 83735; 84439; 84443; 85014; 85018; 85025; 85610; 85730; 93005; 99285; C1713; G0378; J0690; J1100; J1650; J1885; J2250; J2405; J2704; J2710; J3010; J0330; J0360; J7030

== ENCOUNTER 2019-09-08 20:49 | Emergency (ER) | payer MEDICAID, MEDICARE ==
[~2019-09-08] VITALS: Ht 170.2 cm; Wt 72.0 kg
[~2019-09-08 20:49] MED LIST changes: +APIX5TAB PO; +ERGO500017 PO; +ONDA4TAB13 PO; +OXYC5TAB3 PO; +POLY17PO5 PO; +SIMV10TA PO; +TRAM50TA2 PO
[2019-09-08] MEDS ORDERED: PLEASE ENTER ALLERGIES MC SCH (21:00)
[2019-09-08] MEDS ORDERED: HYDROcodone/APAP 5/325 TABLET PO ONE (21:00)
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
[2019-09-08] MEDS ORDERED: RAME8TAB19 PO (21:08)
[2019-09-08] MEDS ORDERED: TAMS-11 PO (21:08)
--- NOTE | 2019-09-08 21:19 | NUR ---
Pt in xray
[2019-09-08] MEDS ORDERED: HYDROcodone/APAP 5/325 TABLET ONE (21:24)
--- NOTE | 2019-09-08 21:27 | NUR ---
Pt returned from xray and medicated per AUG. Pt on pulse ox monitor. Call light within reach.
--- NOTE | 2019-09-08 21:56 | NUR ---
PA back at bedside.
[2019-09-08 21:58] VITALS: BP 151/91
--- NOTE | 2019-09-08 22:05 | NUR ---
Pt able to ambulate with cane.
--- NOTE | 2019-09-08 22:21 | NUR ---
Pt d/c'd to home care. Pt alert, oriented, and in NAD. Pt educated on OTC meds, follow-up, home care, and S/Sx to return. Pt VU. Pt ambulated out of ER. Taxi voucher given.
== END 2019-09-08 22:24 | disposition home or self-care (01) ==
LOC: ED 21:50
DX: S30.0XXA Contusion of lower back and pelvis, initial encounter (principal); M79.604 Pain in right leg; W07.XXXA Fall from chair, initial encounter; Y93.89 Activity, other specified; Y92.009 Unspecified place in unspecified non-institutional (private) residence as the place of occurrence of the external cause; Y99.8 Other external cause status
CPT/HCPCS: 72110; 99284

== ENCOUNTER 2019-10-03 10:47 | Emergency (ER) | payer MEDICARE ==
[~2019-10-03 10:47] MED LIST changes: +RAME8TAB19 PO; +TAMS-11 PO
--- NOTE | 2019-10-03 10:59 | NUR ---
Called to triage x1, no answer.
--- NOTE | 2019-10-03 11:09 | NUR ---
Called x2 from triage, no answer.
--- NOTE | 2019-10-03 11:26 | NUR ---
Called x3, no answer
== END 2019-10-03 11:40 ==
LOC: ED 11:34
DX: R68.89 Other general symptoms and signs (principal); Z53.21 Procedure and treatment not carried out due to patient leaving prior to being seen by health care provider

== ENCOUNTER 2019-10-15 20:15 | Emergency (ER) | payer MEDICARE ==
[~2019-10-15] VITALS: Ht 170.2 cm; Wt 80.0 kg
[2019-10-15 20:18] VITALS: BP 146/78
[2019-10-15] MEDS ORDERED: DIPH,PERTUSS(ACELL),TET VAC/PF 0.5 ML IM-VACC ONE ×2 (21:00→21:32)
--- NOTE | 2019-10-15 21:01 | NUR ---
PT TO CT AT THIS TIME
--- NOTE | 2019-10-15 21:06 | NUR ---
PT BACK FROM CT
--- NOTE | 2019-10-15 22:20 | NUR ---
AT BEDSIDE TO APPLY DERMA HERNANDEZ
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
--- NOTE | 2019-10-16 02:50 | NUR ---
TASK RN: ATTEMPTED TO AMBUALTE PT, PT UNABLE TO UMBRELLA REPAIRER PLACE OR AMBULATE WITH STEADY GAIT. PT BACK TO [facility]. NOTIFIED OF PT STATUS.
--- NOTE | 2019-10-16 05:42 | NUR ---
PT A/O X4 AMB TO BASELINE, PT REFUSING TO LEAVE FACILITY, PT ASSITED WITH SECURITY TO EXIT. CAB CALLED PRIOR TO PT DC
== END 2019-10-16 05:43 | disposition home or self-care (01) ==
LOC: ED 22:28
DX: S01.111A Laceration without foreign body of right eyelid and periocular area, initial encounter (principal); S09.90XA Unspecified injury of head, initial encounter; F10.120 Alcohol abuse with intoxication, uncomplicated; F17.210 Nicotine dependence, cigarettes, uncomplicated; I48.91 Unspecified atrial fibrillation; W18.30XA Fall on same level, unspecified, initial encounter; Y93.89 Activity, other specified; Y92.89 Other specified places as the place of occurrence of the external cause; Y99.8 Other external cause status; Y90.9 Presence of alcohol in blood, level not specified
CPT/HCPCS: 12013; 70450; 72125; 90471; 90715; 93005; 99285; 99406

== ENCOUNTER 2019-11-04 02:34 | Emergency (ER) | payer MEDICARE ==
[~2019-11-04] VITALS: Ht 170.2 cm; Wt 68.5 kg
--- NOTE | 2019-11-04 03:07 | NUR ---
PT TO XRAY
--- NOTE | 2019-11-04 04:14 | NUR ---
PT SLEEPING AT THIS TIME. VSS. WILL CONTINUE TO MONITOR.
--- NOTE | 2019-11-04 05:33 | NUR ---
PT RESTING AT THIS TIME. ALERT AND COOPERATIVE WITH STAFF. WILL CONTINUE TO MONITOR.
--- NOTE | 2019-11-04 06:29 | NUR ---
Patient/Caregiver given discharge instructions and they have confirmed that they understand the instructions. Patient ambulatory with steady gait.
== END 2019-11-04 04:30 ==
LOC: ED 04:24
DX: G89.11 Acute pain due to trauma (principal); M25.551 Pain in right hip; F10.120 Alcohol abuse with intoxication, uncomplicated; F17.200 Nicotine dependence, unspecified, uncomplicated; I10 Essential (primary) hypertension; I48.91 Unspecified atrial fibrillation; Z72.9 Problem related to lifestyle, unspecified; Y90.0 Blood alcohol level of less than 20 mg/100 ml
CPT/HCPCS: 99283

== ENCOUNTER 2019-12-25 20:20 | Emergency (ER) | payer MEDICARE, MEDICAID ==
[~2019-12-25] VITALS: Ht 177.8 cm; Wt 78.0 kg
[~2019-12-25 20:20] MED LIST changes: +ACET325T26 PO; +AMLO10TA8 PO; +FOLI-17 PO; +LISI-167 PO; +LISI40TA PO; +MULT-484 PO; +THIA100T67 PO
[2019-12-25 20:22] VITALS: BP 108/58
--- NOTE | 2019-12-25 20:40 | NUR ---
assessment made. chart up for MD to see.
--- NOTE | 2019-12-25 20:56 | NUR ---
seen by . no orders.
--- NOTE | 2019-12-25 21:06 | NUR ---
patient given water and sandwich.
--- NOTE | 2019-12-25 22:00 | NUR ---
patient sleeping, respiration unlabored.
--- NOTE | 2019-12-25 22:26 | NUR ---
patient walked out with steady gait.
== END 2019-12-25 22:28 | disposition left against medical advice (07) ==
LOC: ED 21:30
DX: F10.220 Alcohol dependence with intoxication, uncomplicated (principal); I10 Essential (primary) hypertension; I48.91 Unspecified atrial fibrillation; M19.90 Unspecified osteoarthritis, unspecified site; Z87.891 Personal history of nicotine dependence; Y90.9 Presence of alcohol in blood, level not specified
CPT/HCPCS: 99283

== ENCOUNTER 2020-02-23 21:03 | Emergency (ER) | payer MEDICARE, MEDICAID ==
[~2020-02-23] VITALS: Ht 170.2 cm; Wt 78.0 kg
[2020-02-23 21:06] VITALS: BP 162/96
--- NOTE | 2020-02-23 21:26 | NUR ---
pt resting in gurney. walker with all belongings at bedside. resps even and unlabored. nadn. pt axox4 and able to speak in full sentences. call light in reach and pt encourge to call before attempting to ambulate.
--- NOTE | 2020-02-24 01:52 | NUR ---
Pt report from fred kou. This rn to assume care of pt. Pt sleeping comfortably on gurney. NADN. Moving extremities at this time.
== END 2020-02-24 02:10 | disposition home or self-care (01) ==
LOC: ED 22:14
DX: F10.120 Alcohol abuse with intoxication, uncomplicated (principal); I10 Essential (primary) hypertension; M19.90 Unspecified osteoarthritis, unspecified site; I48.91 Unspecified atrial fibrillation; Y90.0 Blood alcohol level of less than 20 mg/100 ml
CPT/HCPCS: 99283

== ENCOUNTER 2020-03-28 08:08 | Emergency (ER) | payer MEDICARE, MEDICAID ==
[~2020-03-28] VITALS: Ht 170.2 cm; Wt 75.5 kg
--- NOTE | 2020-03-28 08:24 | NUR ---
BIB EMS, PT LYING ON SIDWALK C/O LEFT SIDE CP, NON-RADIATING, POINT TENDERNESS, INCREASES WITH INSPIRATION. PT WITH CHRONIC AFIB AND HTN, STATES HE DOES NOT TAKE ANY OF HIS MEDICATIONS. ERPA AT BEDSIDE. PT ASSESSMENT REVIEWED AND ORDERS REC'D. EKG COMPELTED. 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 CLOTHES REMOVED AND GOWN AND WARM BLANKETS PROVIDED. VSS. CALL LIGHT W/I REACH
[2020-03-28] MEDS ORDERED: NITROGLYCERIN SINGLE TAB 0.4 MG SL ONE (08:28)
[2020-03-28] MEDS ORDERED: ASPIRIN 81 MG TABLET CHEW ONE (08:28)
[2020-03-28] MEDS ORDERED: ASPIRIN 81 MG TABLET CHEW PO ONE (08:30)
[2020-03-28] MEDS ORDERED: SODIUM CHLORIDE FLUSH 10ML SYR IVF ONE (08:30)
[2020-03-28] MEDS ORDERED: NITROGLYCERIN SINGLE TAB 0.4 MG SL PRN (08:30)
--- NOTE | 2020-03-28 08:34 | NUR ---
NTG TAB X 1 GIVEN, PAIN 10/10.
--- NOTE | 2020-03-28 08:40 | NUR ---
NO CHANGE IN POPINT TENDERNESS CP AFTER NTG.
[2020-03-28 08:51] LABS: BASOPHILS % (AUTO) 1 % (0-1); EOSINOPHILS % (AUTO) 2 % (1-7); LYMPHOCYTES % (AUTO) 36 % (22-44); MEAN CORPUSCULAR HEMOGLOBIN 33.8 pg (27.5-34.5); MEAN CORPUSCULAR HGB CONC 32.9 g/dL (33.2-36.2); MEAN PLATELET VOLUME 8.3 fL (7.4-10.4); MONOCYTES % (AUTO) 12 % (2-9); NEUTROPHILS % (AUTO) 48 % (42-75); PLATELET COUNT 244 x10^3/uL (130-400); RED BLOOD COUNT 3.82 x10^6/uL (4.38-5.82)
[2020-03-28 08:59] LABS: ANION GAP 6 mmol/L (5-15); CALCIUM 8.6 mg/dL (8.5-10.1); CHLORIDE 109 mmol/L (98-107)
[2020-03-28 09:00] LABS: ALANINE AMINOTRANSFERASE 23 U/L (12-78)
[2020-03-28 09:04] LABS: ALKALINE PHOSPHATASE 94 U/L (45-117); TROPONIN I < 0.015 ng/mL (0.000-0.045)
[2020-03-28 09:22] LABS: MD SCAN
[2020-03-28] MEDS ORDERED: POTASSIUM CHLORIDE 20 MEQ TAB.ER.PRT PO ONE (09:30)
[2020-03-28] MEDS ORDERED: POTASSIUM CHLORIDE 20 MEQ TAB.ER.PRT ONE (10:00)
[2020-03-28 10:20] VITALS: BP 142/93
--- NOTE | 2020-03-28 10:21 | NUR ---
PT MED NOTED. BREAFAST TRAY PROVIDED. PIV D/C TIP INTACT. DRY SOCKS PROVIDED.
--- NOTE | 2020-03-28 11:03 | NUR ---
Patient/Caregiver given discharge instructions and they have confirmed that they understand the instructions. Patient ambulatory with steady gait.
== END 2020-03-28 11:04 | disposition home or self-care (01) ==
LOC: ED 09:04
DX: R07.89 Other chest pain (principal); E87.6 Hypokalemia; R00.0 Tachycardia, unspecified; I45.10 Unspecified right bundle-branch block; I10 Essential (primary) hypertension; I48.91 Unspecified atrial fibrillation; Z87.891 Personal history of nicotine dependence
CPT/HCPCS: 36415; 71045; 80053; 83735; 83880; 84484; 85025; 93005; 99285

== ENCOUNTER 2020-04-26 18:38 | Emergency (ER) | payer MEDICARE, MEDICAID ==
[~2020-04-26] VITALS: Ht 170.2 cm; Wt 68.0 kg
[~2020-04-26 18:38] MED LIST changes: +AMLO-211 PO; -AMLO10TA8 PO
[2020-04-26] MEDS ORDERED: NEOSPORIN OINT. PKT 1 PACKET ONE (20:53)
[2020-04-26] MEDS ORDERED: DIPH,PERTUSS(ACELL),TET VAC/PF 0.5 ML IM-VACC ONE ×2 (20:53→21:00)
--- NOTE | 2020-04-26 21:16 | NUR ---
PT CLEANED AND HEAD BANDAGED WITH NEOSPORIN . PT MEDICATED PER EMAR. PT RESTING IN BED
--- NOTE | 2020-04-26 22:14 | NUR ---
PT RESTING IN BED, PT DENIED ANY WANTS OR NEEDS AT THIS TIME.
--- NOTE | 2020-04-27 01:51 | NUR ---
PT SLEEPING IN BED, PT ON MONITOR, PT VSS
[2020-04-27 02:40] VITALS: BP 132/74
== END 2020-04-27 02:43 | disposition home or self-care (01) ==
LOC: ED 21:22
DX: S00.01XA Abrasion of scalp, initial encounter (principal); S00.81XA Abrasion of other part of head, initial encounter; S09.90XA Unspecified injury of head, initial encounter; F10.120 Alcohol abuse with intoxication, uncomplicated; F17.210 Nicotine dependence, cigarettes, uncomplicated; Y90.9 Presence of alcohol in blood, level not specified; W01.0XXA Fall on same level from slipping, tripping and stumbling without subsequent striking against object, initial encounter; Y93.89 Activity, other specified; Y92.410 Unspecified street and highway as the place of occurrence of the external cause; Y99.8 Other external cause status
CPT/HCPCS: 70450; 70486; 71045; 90471; 90715; 99285; 99406

== ENCOUNTER 2020-05-23 17:09 | Emergency (ER) | payer MEDICARE, MEDICAID ==
[~2020-05-23] VITALS: Ht 170.2 cm; Wt 75.5 kg
--- NOTE | 2020-05-23 17:49 | NUR ---
Kvng lara in [facility] - 05/23/20 at 1826 by BLANE NO ANSWER FROM HEIDI
--- NOTE | 2020-05-23 18:05 | NUR ---
Kvng lara in [facility] - 05/23/20 at 1826 by BLANE NO ANSWER FROM HEIDI
--- NOTE | 2020-05-23 18:50 | NUR ---
BIB AMBULANCE FOR GROUND LEVEL FALL AT [facility] THIS AFTERNOON, PT STATES HE JUST FELT WEAK THEN FELL, C/O RIGHT HIP PAIN WITH TENDERNESS. PT C/O PAIN AND SORENESS TO BUTTOCK STATES 'MY PANTS KEEP STICKING TO MY SKIN'. RENDESS WITH EXCORIATION TO BILAT BUTTOCK, PATIENT CLEANED AND CALAZIME APPLIED. PT PLACED ON WAFFLE MATTRESS. ED STAINLESS STEEL FINISHER AT BEDSIDE FOR EXAM. PT ALERT AND ORIENTED.
--- NOTE | 2020-05-23 19:41 | NUR ---
PT ASLEEP ON GURKUSHAL, EVEN SNORING RESPS. O2 SAT 94%RA
--- NOTE | 2020-05-23 20:25 | NUR ---
PT SLEEPING; EASILY AWAKENED. STATES HE STAYS IN [place].
[2020-05-23 20:27] VITALS: BP 134/90
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
--- NOTE | 2020-05-23 21:49 | NUR ---
PT GETTING DRESSED FOR DISCHARGE; PT'S CANE IN ROOM. PT REFUSING WALKER IN FAVOR OF HIS CANE.
== END 2020-05-23 22:27 | disposition home or self-care (01) ==
LOC: ED 21:39
DX: S70.01XA Contusion of right hip, initial encounter (principal); M25.552 Pain in left hip; I48.91 Unspecified atrial fibrillation; I10 Essential (primary) hypertension; Z87.891 Personal history of nicotine dependence; W01.0XXA Fall on same level from slipping, tripping and stumbling without subsequent striking against object, initial encounter; Y93.89 Activity, other specified; Y92.89 Other specified places as the place of occurrence of the external cause; Y99.8 Other external cause status
CPT/HCPCS: 72190; 99283

== ENCOUNTER 2020-07-27 15:53 | Emergency (ER) | payer MEDICARE, MEDICAID ==
[~2020-07-27] VITALS: Ht 170.2 cm; Wt 78.0 kg
[~2020-07-27 15:53] MED LIST changes: -FOLI-17 PO; +FOLI1TAB32 PO; -LISI40TA PO; +LISI40TA9 PO; -OXYC5TAB3 PO; +OXYC5TAB98 PO
--- NOTE | 2020-07-27 16:42 | NUR ---
PT IN HIGH FOWLERS IN BED, RESTING COMFORTABLY WITH EYES CLOSED AND EVEN UNLABORED RESPIRATIONS NO SIGNS OR SYMPTOMS OF ACUTE DSITRESS NOTEDCALL LIGHT WITHIN REACH BED RAILS UP BILATERALLY
--- NOTE | 2020-07-27 17:08 | NUR ---
IN TO ASSESS, PT SLEEPY BUT ROUSABLE TO TACTILE STIMULATION. PT NOTED TO HAVE URINATED IN BED, PT CLEANED AND PROVIDED FRESH PANTS. PT SITTING IN BED WITH NO SIGNS OR SYMPTOMS OF ACUTE DISTRESS NOTED RESPIRATIONS EVEN AND UNLABORED
--- NOTE | 2020-07-27 19:02 | NUR ---
PT NOW AWAKE, PROVIDED TWO PB&J SANDWICHES AND TWO GLASSES OF WATER. PT DENIES REMEMBERING CALLING THE MEDIC FOR TRANSPORT, STATES HE WILL LET RN KNOW WHEN HE FEELS READY TO LEAVE. PT ORIENTED TO THE FACT THAT HE URINATED IN HIS PANTS EARLIER, PT VERBALIZES APPREICATION FOR THE CLEAN PANTS. NO SIGNS OR SYMPTOMS OF ACUTE DISTRESS NOTED RESPIRATIONS EVEN AND UNLABORED
--- NOTE | 2020-07-27 19:50 | NUR ---
BREAK RN: PT SLEEPING. EVEN RISE AND FALL OF CHEST OBSERVED. VSS. CALL LIGHT IN REACH
--- NOTE | 2020-07-27 20:32 | NUR ---
PT SLEEPY BUT ROUSABLE TO VOICE, STATES THAT HE DOESNT FEEL READY TO GO YET. PT ENCOURAGED TO EAT HIS SANDWICHES AND DRINK HIS WATER. NO SIGNS OR SYMPTOMS OF ACUTE DISTRESS NOTED RESPIRATIONS EVEN AND UNLABORED
[2020-07-27] MEDS ORDERED: IBUPROFEN 800 MG TABLET ONE (20:37)
[2020-07-27] MEDS ORDERED: IBUPROFEN 800 MG TABLET PO ONE (21:00)
[2020-07-27 21:15] VITALS: BP 158/76
--- NOTE | 2020-07-27 21:16 | NUR ---
PT ALERT AND AWAKE VERBALIZES READINESS TO GO HOME. NO SIGNS OR SYMPTOMS OF ACUTE DSITRESS NOTED RESPIRATIONS EVEN AND UNLABORED PT WITH ALL BELONGINGS AND PROVIDED A TAXI VOUCHER
== END 2020-07-27 21:18 | disposition home or self-care (01) ==
LOC: ED 21:00
DX: F10.229 Alcohol dependence with intoxication, unspecified (principal); M54.5 Low back pain; Z87.891 Personal history of nicotine dependence; I48.91 Unspecified atrial fibrillation; I10 Essential (primary) hypertension; M19.90 Unspecified osteoarthritis, unspecified site; Y90.0 Blood alcohol level of less than 20 mg/100 ml
CPT/HCPCS: 99285

== ENCOUNTER 2020-09-11 12:51 | Emergency (ER) | payer MEDICARE, MEDICAID ==
[~2020-09-11] VITALS: Ht 170.2 cm; Wt 69.6 kg
--- NOTE | 2020-09-11 12:56 | NUR ---
COMMISSARY STEWARD: [email or web address]
[2020-09-11 13:03] VITALS: BP 166/98
--- NOTE | 2020-09-11 13:17 | NUR ---
ENVIRONMENTAL PROJECT MANAGER: SUTURES REMOVED BY WALTER PANDYA IN TRIAGE. VERBALIZED UNDERSTANDING OF DC INSTRUCTIONS. AMBULATORY W/ A STEADY GAIT TO DC DESK. RESP EVEN AND UNLABORED, NADN.
== END 2020-09-11 13:19 | disposition home or self-care (01) ==
LOC: ED 13:05
DX: S01.81XD Laceration without foreign body of other part of head, subsequent encounter (principal); I48.91 Unspecified atrial fibrillation; I10 Essential (primary) hypertension; Z87.891 Personal history of nicotine dependence; X58.XXXD Exposure to other specified factors, subsequent encounter
CPT/HCPCS: 99281

== ENCOUNTER 2020-11-21 10:33 | Emergency (ER) | payer MEDICARE, MEDICAID ==
[~2020-11-21] VITALS: Ht 167.6 cm; Wt 65.0 kg
[2020-11-21 10:45] VITALS: BP 170/95
--- NOTE | 2020-11-21 11:08 | NUR ---
REPORT GIVEN TO CRISPIN BORGES.
--- NOTE | 2020-11-21 15:25 | NUR ---
PT D/C WITH D/C SUMMARY AND SCRIPTS. ALL QUESTIONS ANSWERED. PT PROVIDED WITH FRESH CLOTHES AND SOCKS AND A CANE TO HELP AMBULATE. PT REQUESTED TAXI VOUCHER. TAXI VOUCHER PROVIDED AT THIS TIME. PT DENIES ANY OTHER NEEDS PERTAINING TO THIS VISIT AND AMBULATES TO REGISTRATION DESK WITH STEADY GAIT FOR D/C HOME.
== END 2020-11-21 15:28 | disposition home or self-care (01) ==
LOC: ED 13:28
DX: G89.11 Acute pain due to trauma (principal); M25.552 Pain in left hip; H10.022 Other mucopurulent conjunctivitis, left eye; I10 Essential (primary) hypertension; I48.91 Unspecified atrial fibrillation; F17.200 Nicotine dependence, unspecified, uncomplicated; W18.30XA Fall on same level, unspecified, initial encounter; Y93.89 Activity, other specified; Y92.410 Unspecified street and highway as the place of occurrence of the external cause; Y99.8 Other external cause status
CPT/HCPCS: 99283

== ENCOUNTER 2020-11-23 08:54 | Emergency (ER) | payer MEDICARE, MEDICAID ==
[~2020-11-23] VITALS: Ht 170.2 cm; Wt 69.0 kg
[2020-11-23 09:02] VITALS: BP 159/112
[2020-11-23] MEDS ORDERED: POLYTRIM OPHTH 10ML EACHEYE STA (09:36)
--- NOTE | 2020-11-23 09:38 | NUR ---
PA in to see pt at this time.
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
--- NOTE | 2020-11-23 10:35 | NUR ---
Eye gtt to each eye applied. Still awaiting order for ibuprofen from PA or MD for body pain c/o.
[2020-11-23] MEDS ORDERED: IBUPROFEN 600 MG TABLET ONE (10:53)
[2020-11-23] MEDS ORDERED: IBUPROFEN 600 MG TABLET PO ONE (11:00)
--- NOTE | 2020-11-23 11:07 | NUR ---
Eye gtt bottle given to pt with instructions as written by PA written clearly on pt label of box. Pt states understanding of d/c instructions. Pt assisted to d/c desk by wheelchair with cane in hand and bus pass provided.
== END 2020-11-23 11:27 | disposition home or self-care (01) ==
LOC: ED 10:48
DX: H10.023 Other mucopurulent conjunctivitis, bilateral (principal); I10 Essential (primary) hypertension
CPT/HCPCS: 99283

== ENCOUNTER 2020-12-24 11:06 | Emergency (ER) | payer MEDICARE, MEDICAID ==
[~2020-12-24] VITALS: Ht 170.2 cm; Wt 60.0 kg
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
--- NOTE | 2020-12-24 11:31 | NUR ---
XRAY COMPLETED. BROUGHT PT WATER PER THEIR REQUEST.
--- NOTE | 2020-12-24 11:59 | NUR ---
PT RESTING IN LETICIA, AGATHA, JENNYFERN. CALL LIGHT W/IN REACH.
--- NOTE | 2020-12-24 12:32 | NUR ---
pt sleeping in [facility], vss, nadn. call light w/in reach.
[2020-12-24 13:36] VITALS: BP 121/77
--- NOTE | 2020-12-24 13:38 | NUR ---
went to check on pt, to see if we could d/c. Pt stated he was ready to go, but then immediately fell back to sleep. Will continue to monitor. sherlyn, wanda, call light w/in reach.
--- NOTE | 2020-12-24 13:47 | NUR ---
Patient given discharge instructions and they have confirmed that they understand the instructions. Patient ambulatory with steady gait. Bus pass provided to pt.
--- NOTE | 2020-12-24 13:53 | NUR ---
PT USING RESTROOM AT THIS TIME
== END 2020-12-24 14:17 | disposition home or self-care (01) ==
LOC: ED 11:38
DX: S20.219A Contusion of unspecified front wall of thorax, initial encounter (principal); F10.129 Alcohol abuse with intoxication, unspecified; W20.8XXA Other cause of strike by thrown, projected or falling object, initial encounter; Y93.89 Activity, other specified; Y92.89 Other specified places as the place of occurrence of the external cause; Y99.8 Other external cause status; Y90.9 Presence of alcohol in blood, level not specified
CPT/HCPCS: 71045; 93005; 99283

== ENCOUNTER 2020-12-25 10:27 | Emergency (ER) | payer MEDICARE, MEDICAID ==
[~2020-12-25] VITALS: Ht 167.6 cm; Wt 70.0 kg
--- NOTE | 2020-12-25 10:56 | NUR ---
MD Yen to bedside for eval. Pt reports he lives here in the hospital.
[2020-12-25 14:05] VITALS: BP 100/35
== END 2020-12-25 14:08 | disposition home or self-care (01) ==
LOC: ED 11:33
DX: F10.229 Alcohol dependence with intoxication, unspecified (principal); G92 Toxic encephalopathy; I10 Essential (primary) hypertension; I48.91 Unspecified atrial fibrillation; Y90.0 Blood alcohol level of less than 20 mg/100 ml
CPT/HCPCS: 99283

== ENCOUNTER 2020-12-31 07:38 | Emergency (ER) | payer MEDICARE, MEDICAID ==
[~2020-12-31] VITALS: Ht 172.7 cm; Wt 67.0 kg
--- NOTE | 2020-12-31 08:53 | NUR ---
RECEIVED REPORT FROM CRISPIN FERREIRA. PT RESTING ON LETICIA. VSS. PROVIDED W/ BREAKFAST TRAY.
--- NOTE | 2020-12-31 09:55 | NUR ---
PT SLEEPING ON LETICIA. NADN. SNIDER.
--- NOTE | 2020-12-31 10:16 | NUR ---
PT AWARE OF NEED FOR UA SAMPLE. URINAL PROVIDED.
[2020-12-31 10:33] LABS: BASOPHILS % (AUTO) 1 % (0-1); EOSINOPHILS % (AUTO) 5 % (1-7); LYMPHOCYTES % (AUTO) 45 % (22-44); MEAN CORPUSCULAR HEMOGLOBIN 34.3 pg (27.5-34.5); MEAN CORPUSCULAR HGB CONC 33.4 g/dL (33.2-36.2); MEAN PLATELET VOLUME 8.5 fL (7.4-10.4); MONOCYTES % (AUTO) 14 % (2-9); NEUTROPHILS % (AUTO) 36 % (42-75); PLATELET COUNT 132 x10^3/uL (130-400); RED BLOOD COUNT 4.22 x10^6/uL (4.38-5.82); RED CELL DISTRIBUTION WIDTH 16.6 % (9.4-14.8)
[2020-12-31 11:01] LABS: AMPHETAMINE SCREEN, URINE Negative (Negative); BARBITURATE SCREEN, URINE Negative (Negative); BENZODIAZEPINE SCREEN, URINE Negative (Negative); CANNABINOID SCREEN, URINE Negative (Negative); COCAINE SCREEN, URINE Negative (Negative); METHADONE SCREEN, URINE Negative (Negative); OPIATE SCREEN, URINE Negative (Negative)
[2020-12-31 11:09] LABS: ALBUMIN 2.9 g/dL (3.4-5.0); ANION GAP 9 mmol/L (5-15); CALCIUM 8.4 mg/dL (8.5-10.1); CHLORIDE 104 mmol/L (98-107); CREATININE 0.92 mg/dL (0.7-1.3)
--- NOTE | 2020-12-31 11:10 | NUR ---
PT RESTING ON GURNEY. NADN. SNIDER.
[2020-12-31 11:21] LABS: SALICYLATE LEVEL < 1.7 mg/dL (2.8-20.0)
[2020-12-31] MEDS ORDERED: ASPIRIN 81 MG TABLET CHEW ONE (11:34)
[2020-12-31 11:35] VITALS: BP 114/60
--- NOTE | 2020-12-31 11:41 | NUR ---
PT AOX4. AMBULATORY W/ BASELINE STEADY GAIT W/ CANE. PT WALKED TO ADEN JUNIOR. PROVIDED W/ BUS PASS.
[2021-01-03] MEDS ORDERED: KETOROLAC 30 MG/1 ML ONE (18:10)
[2021-01-03] MEDS ORDERED: ACETAMINOPHEN 500 MG TABLET ONE (18:10)
== END 2020-12-31 14:44 | disposition home or self-care (01) ==
LOC: ED 08:14 → UNDOADMOB 09:23 → EDIP 09:23 → INTOOBSV 09:23
DX: F10.220 Alcohol dependence with intoxication, uncomplicated (principal); I10 Essential (primary) hypertension; I48.91 Unspecified atrial fibrillation; M19.90 Unspecified osteoarthritis, unspecified site; Y99.0 Civilian activity done for income or pay
CPT/HCPCS: 36415; 80048; 80299; 80307; 80320; 80329; 82040; 85025; 99285; G0480

== ENCOUNTER 2021-02-07 13:10 | Emergency (ER) | payer MEDICARE, MEDICAID ==
[~2021-02-07] VITALS: Ht 170.2 cm; Wt 69.2 kg
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
[2021-02-07] MEDS ORDERED: IBUPROFEN 600 MG TABLET ONE (14:10)
[2021-02-07 14:22] VITALS: BP 135/65
--- NOTE | 2021-02-07 14:22 | NUR ---
PT REC'VD DISCHARGE INSTRUCTIONS AND EDUCATION. PT HAD NO FURTHER QUESTIONS.
[2021-02-07] MEDS ORDERED: IBUPROFEN 200 MG TABLET PO ONE (14:30)
== END 2021-02-07 14:52 | disposition home or self-care (01) ==
LOC: ED 13:49
DX: S05.31XD Ocular laceration without prolapse or loss of intraocular tissue, right eye, subsequent encounter (principal); Z87.891 Personal history of nicotine dependence; I48.91 Unspecified atrial fibrillation; M19.90 Unspecified osteoarthritis, unspecified site; I11.9 Hypertensive heart disease without heart failure; X58.XXXD Exposure to other specified factors, subsequent encounter
CPT/HCPCS: 99282

== ENCOUNTER 2021-02-17 21:50 | Inpatient (IN) | payer MEDICARE, MEDICAID ==
[~2021-02-17] VITALS: Ht 170.2 cm; Wt 65.3 kg
[2021-02-17] MEDS ORDERED: PLEASE ENTER HEIGHT AND WEIGHT MC SCH (22:30)
[2021-02-17] MEDS ORDERED: SODIUM CHLORIDE 0.9% 1,000ML IVBOLUS ONE (22:30)
[2021-02-17 22:50] LABS: BASOPHILS % (AUTO) 0 % (0-1); EOSINOPHILS % (AUTO) 2 % (1-7); LYMPHOCYTES % (AUTO) 42 % (22-44); MEAN CORPUSCULAR HEMOGLOBIN 34.1 pg (27.5-34.5); MEAN CORPUSCULAR HGB CONC 33.4 g/dL (33.2-36.2); MEAN PLATELET VOLUME 7.7 fL (7.4-10.4); MONOCYTES % (AUTO) 13 % (2-9); NEUTROPHILS % (AUTO) 43 % (42-75); PLATELET COUNT 222 x10^3/uL (130-400); RED BLOOD COUNT 3.56 x10^6/uL (4.38-5.82); RED CELL DISTRIBUTION WIDTH 16.5 % (9.4-14.8)
[2021-02-17 22:57] LABS: INTERNATIONAL NORMALIZED RATIO 1.21 (0.93-1.1); PROTHROMBIN TIME 12.8 Seconds (9.6-11.5)
[2021-02-17] MEDS ORDERED: MAGNESIUM SULFATE 1 GM, THIAMINE 100 MG, FOLIC ACID 1 MG, MVI ADULT 10 ML in SODIUM CHL... IV ONE (23:00)
[2021-02-17] MEDS ORDERED: LEVETIRACETAM 1,000 MG in SODIUM CHLORIDE 0.9% 100 ML IV ONE (23:00)
--- NOTE | 2021-02-17 23:04 | NUR ---
RICHIE FROM [employer]. PT WAS FOUND LAYING ON THE GROUND. PT DENIES HEAD TRAUMA, OR LOC. PT APPEARS ETOH, SLURRING WORDS. NO BUMP OR TRAUMA APPEARS NOTICABLE ON PT. ATTACHED TO MONITORS, VSS. NADN. BED IN LOW, RAILS ENGAGED. CALL LIGHT ON LAP.
[2021-02-17 23:23] LABS: ALBUMIN 2.3 g/dL (3.4-5.0); CALCIUM 8.1 mg/dL (8.5-10.1)
[2021-02-17 23:29] LABS: SALICYLATE LEVEL < 1.7 mg/dL (2.8-20.0)
[2021-02-17 23:38] LABS: ALANINE AMINOTRANSFERASE 23 U/L (12-78); ALKALINE PHOSPHATASE 55 U/L (45-117); ANION GAP 10 mmol/L (5-15); BILIRUBIN,TOTAL 0.8 mg/dL (0.2-1.0); CHLORIDE 108 mmol/L (98-107); CREATININE 1.29 mg/dL (0.7-1.3); TOTAL PROTEIN 6.6 g/dL (6.4-8.2)
--- NOTE | 2021-02-17 23:39 | NUR ---
PT RESTING IN BED. NO NEURO DEFICITS. A&OX4, INTOXICATED. SPEECH SLURRED. VSS. ATTACHED TO ALL MONITORS. DUANE
[2021-02-18] MEDS ORDERED: LABETALOL 5MG/ML, 20ML IVPush PRN (00:30)
[2021-02-18] MEDS ORDERED: ONDANSETRON 2MG/ML, 2ML IVPush PRN (00:30)
--- NOTE | 2021-02-18 00:34 | NUR ---
Patient is resting comfortably in bed. Bed in lowest, rails engaged, call light on lap. Vital Signs within normal limits. WCTM.
[2021-02-18] MEDS ORDERED: LORazepam 2 MG/ML, 1ML IV PRN ×2 (01:00)
[2021-02-18 01:30] LABS: MEAN CORPUSCULAR HEMOGLOBIN 34.6 pg (27.5-34.5); MEAN CORPUSCULAR HGB CONC 33.9 g/dL (33.2-36.2); MEAN PLATELET VOLUME 7.8 fL (7.4-10.4); PLATELET COUNT 187 x10^3/uL (130-400); RED BLOOD COUNT 3.35 x10^6/uL (4.38-5.82); RED CELL DISTRIBUTION WIDTH 16.6 % (9.4-14.8)
[2021-02-18 01:31] LABS: ALBUMIN 2.1 g/dL (3.4-5.0); BILIRUBIN, DIRECT 0.5 mg/dL (0.1-0.2)
[2021-02-18 01:41] LABS: BILIRUBIN,INDIRECT 0.3 mg/dL (0.0-2.0); BILIRUBIN,TOTAL 0.8 mg/dL (0.2-1.0); TOTAL PROTEIN 6.2 g/dL (6.4-8.2)
[2021-02-18 02:10] LABS: BASOS#(MANUAL) 0.05 x10^3/uL (0-0.1); BASOS% (MANUAL) 1 % (0-1); EOS% (MANUAL) 2 % (1-7); LYMPH#(MANUAL) 1.68 x10^3/uL (1-3.4); LYMPHS% (MANUAL) 35 % (22-44); MONOS#(MANUAL) 0.58 x10^3/uL (0.3-2.7); MONOS% (MANUAL) 12 % (2-9); REACTIVE LYMPHS # (MANUAL) 0.05 x10^3/uL (0-0); REACTIVE LYMPHS % (MANUAL) 1 % (0-0); SEG#(MANUAL) 2.35 x10^3/uL (1.8-6.8); SEGS% (MANUAL) 49 % (42-75)
[2021-02-18 02:11] LABS: ANISOCYTOSIS 1+
[2021-02-18 02:12] LABS: <PLATELET ESTIMATE> ADEQUATE; <PLT MORPHOLOGY> NORMAL PLT MORPH
--- NOTE | 2021-02-18 02:46 | NUR ---
BREAK RN: PT RESTING ON GURNEY, NAD, APPEARS COMFORTABLE, EVEN AND UNLABORED RESPIRATIONS NOTED, BED IN LOWEST, RAILS ENGAGED, CALL LIGHT ON LAP, VSS, GIANCARLO. CICU BED ORDERED
--- NOTE | 2021-02-18 03:13 | NUR ---
Patient is SLEEPING comfortably in bed. EYES CLOSED. Bed in lowest, rails engaged, call light on lap. Vital Signs within normal limits. WCTM.
--- NOTE | 2021-02-18 03:30 | NUR ---
LATE ENTRY DUE TO PT CARE. PT TRANSFERRED TO ICU BED. TOLERATED WELL. PT APPEARS MORE COMFORTABLE. PT ATTACHED TO CARD/SP02/BP MONITORS AND O2. VSS. NADN. PT SINGING TO BED MUSIC. BED IN LOW, RAILS ENGAGED, CALL LLIGHT ON LAP.
--- NOTE | 2021-02-18 05:29 | NUR ---
Patient is SLEPING comfortably in bed. EYES CLOSED. Bed in lowest, rails engaged, call light on lap. Vital Signs within normal limits. WCTM. ZEPEDA Addendum: 02/18/21 at 0530 by [email or web address] PT SNORING
--- NOTE | 2021-02-18 05:53 | NUR ---
PT MOVED UP IN BED WITH 2ND NURSE HELP
--- NOTE | 2021-02-18 06:54 | NUR ---
GAVE REPORT TO EDUARDO ROA. TRANSFER OF CARE
--- NOTE | 2021-02-18 07:00 | NUR ---
Report from CRISPIN Neves. First contact, pt sleeping RR equal and unlabored. No s/s etoh w/d at this time. HOB 30, wakes up with verbal is GCS 14. NSR depressed ST segment no ectopy, b/p wnl. IVF infusing will continue to monitor.
[2021-02-18] MEDS ORDERED: LORazepam 2 MG/ML, 1ML IVPush PRN (07:30)
[2021-02-18] MEDS ORDERED: POTASSIUM CHLORIDE 20 MEQ, MAGNESIUM SULFATE 1 GM, THIAMINE 200 MG, FOLIC ACID 1 MG, MV... IV SCH ×2 (07:30→23:00)
[2021-02-18] MEDS ORDERED: LORazepam 2 MG/ML, 1ML ONE (09:10)
--- NOTE | 2021-02-18 09:15 | NUR ---
Pt back from CT, pt with some tremors, HR 100 mild diaphoresis. Medicated with Ativan per order for etoh w/d. 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 VSS. Will continue to monitor. Ralley bag still infusing.
--- NOTE | 2021-02-18 10:38 | NUR ---
Sleeping, RR equal and unlabored. pupils pinpoint, b/p 145/100 no orders for this paramater will continue monitor, page hospitalist. NSR no ectopy.
--- NOTE | 2021-02-18 11:11 | NUR ---
No change in neuro status, requested next ralley bag with kcl from pharmacy. VSS, HOB 30 will continue to monitor.
--- NOTE | 2021-02-18 12:44 | NUR ---
Waiting for next ralley bag.
--- NOTE | 2021-02-18 12:54 | NUR ---
Remains A fib rate 85, wakes up with verbal communication. No s/s etoh w/d.
--- NOTE | 2021-02-18 13:11 | NUR ---
Remains sleeping, will wake up with verbal communication and remains a/ox3, is sleepy 2nd to ativan. Pupils pinpoint, reactive, equal. A fib, no ectopy rate 18
[2021-02-18] MEDS: LEVETIRACETAM 500 MG in SODIUM CHLORIDE 0.9% 100 ML IV SCH (13:48)
--- NOTE | 2021-02-18 15:11 | NUR ---
TASK RN: PT SLEEPING IN NAD, EVEN AND UNLABORED RESPIRATIONS NOTED. VSS.
--- NOTE | 2021-02-18 16:41 | NUR ---
Report to CN. Gladys Pt to be tx to tele on monitor.
--- NOTE | 2021-02-18 17:30 | NUR ---
Condom cath removed, output 1400ml pepe urine.
--- NOTE | 2021-02-18 17:34 | NUR ---
All belongings on pt wc and ready for transport to tele. Pt remains sleeping, wakes up with verbal. No s/s etoh w/d. HOB 30. Waiting for transport to tele A fib.
[2021-02-18 19:52] VITALS: BP 166/96
[2021-02-19 00:09] VITALS: BP 154/83
[2021-02-19] MEDS: LEVETIRACETAM 500 MG in SODIUM CHLORIDE 0.9% 100 ML IV SCH (04:56)
[2021-02-19 06:26] LABS: CHLORIDE 111 mmol/L (98-107)
[2021-02-19 06:39] LABS: ALANINE AMINOTRANSFERASE 20 U/L (12-78); ALBUMIN 1.9 g/dL (3.4-5.0); ALKALINE PHOSPHATASE 56 U/L (45-117); ANION GAP 8 mmol/L (5-15); BILIRUBIN,TOTAL 1.7 mg/dL (0.2-1.0); CALCIUM 8.2 mg/dL (8.5-10.1); CREATININE 0.58 mg/dL (0.7-1.3); TOTAL PROTEIN 6.4 g/dL (6.4-8.2)
[2021-02-19 09:25] VITALS: BP 164/72
[2021-02-19 13:44] VITALS: BP 174/84
[2021-02-19] MEDS ORDERED: LEVE500T53 PO (14:04)
== END 2021-02-19 16:45 | disposition home or self-care (01) | DRG 86 ==
LOC: ED 22:00 → EDIP 23:22 → 4EST 02-18 18:48
PROVIDERS: ADMIT Internal Medicine; ATTEND Family Medicine
DX: S06.5X0A Traumatic subdural hemorrhage without loss of consciousness, initial encounter (principal); I50.42 Chronic combined systolic (congestive) and diastolic (congestive) heart failure; I42.9 Cardiomyopathy, unspecified; F10.129 Alcohol abuse with intoxication, unspecified; I27.20 Pulmonary hypertension, unspecified; E78.5 Hyperlipidemia, unspecified; W18.39XA Other fall on same level, initial encounter; I08.3 Combined rheumatic disorders of mitral, aortic and tricuspid valves; I11.0 Hypertensive heart disease with heart failure; M19.90 Unspecified osteoarthritis, unspecified site; I48.91 Unspecified atrial fibrillation; Z59.0 Homelessness; Z80.8 Family history of malignant neoplasm of other organs or systems; X58.XXXA Exposure to other specified factors, initial encounter; Y93.84 Activity, sleeping; Y92.524 Gas station as the place of occurrence of the external cause; Y99.9 Unspecified external cause status
CPT/HCPCS: 36415; 70450; 80053; 80076; 80299; 80320; 80329; 83036; 83735; 84100; 84443; 85025; 85610; 85730; 93005; 99285; G0378; J1953; J3411; J3475; J3480; G0480; J7030

== ENCOUNTER 2021-02-19 20:07 | Emergency (ER) | payer MEDICARE, MEDICAID ==
[~2021-02-19] VITALS: Ht 170.2 cm; Wt 68.7 kg
[~2021-02-19 20:07] MED LIST changes: +LEVE500T53 PO
[2021-02-19] MEDS ORDERED: PLEASE ENTER HEIGHT AND WEIGHT MC SCH (20:30)
[2021-02-19] MEDS ORDERED: LIDOCAINE-MPF 2% ,5ML IV ONE (20:30)
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
--- NOTE | 2021-02-19 22:28 | NUR ---
PT ASLEEP IN BED, ALL NEEDS IN REACH, CALL LIGHT IN REACH, NAD AT THIS TIME, VSS
--- NOTE | 2021-02-19 23:32 | NUR ---
PT ASLEEP IN BED, ALL NEEDS IN REACH, CALL LIGHT IN REACH, NAD AT THIS TIME, VSS
--- NOTE | 2021-02-20 01:09 | NUR ---
PT COMPLAINING OF SHOULDER PAIN UPON DISCHARGE, THIS RN STATED THAT AN XRAY WAS TAKEN THAT THERE WAS NO FRACTURE OR DISLOCATION BUT THERE WOULD BE SORENESS FROM HIS FALL, PT ARRIVED WITH HIS OWN WHEELCHAIR AND USES HIS LEGS TO PUSH/PULL HIMSELF AROUND IN HIS WHEELCHAIR, PT A/OX3 UPON DISCHARGE, VSS
[2021-02-20 01:10] VITALS: BP 133/64
== END 2021-02-20 01:12 | disposition home or self-care (01) ==
LOC: ED 20:23
DX: F10.120 Alcohol abuse with intoxication, uncomplicated (principal); G31.2 Degeneration of nervous system due to alcohol; M25.511 Pain in right shoulder; R51.9 Headache, unspecified; Z87.891 Personal history of nicotine dependence; Y90.9 Presence of alcohol in blood, level not specified
CPT/HCPCS: 70450; 99284

== ENCOUNTER 2021-02-20 03:59 | Emergency (ER) | payer MEDICARE, MEDICAID ==
[~2021-02-20] VITALS: Ht 170.2 cm; Wt 70.0 kg
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
--- NOTE | 2021-02-20 05:11 | NUR ---
MD AT BEDSIDE FOR EVALUATION, PT ASLEEP IN BED, PT UPSIDE DOWN IN BED, VSS
--- NOTE | 2021-02-20 06:48 | NUR ---
REPORT FROM CRISPIN POLLARD
--- NOTE | 2021-02-20 06:58 | NUR ---
PT RESTING ON GURNEY, RESPIRATIONS EVEN AND UNLABORED. PT CONNECTED TO MONITORS, NADN/VSS. CALL LIGHT WITHIN REACH, BED IN LOWEST POSITION, BED RAILS UP X2
[2021-02-20 08:34] VITALS: BP 165/73
--- NOTE | 2021-02-20 08:38 | NUR ---
PT CONTINUES RESTING ON GURNEY, NADN/VSS. RESPIRATIONS EVEN AND UNLABORED. CALL LIGHT WITHIN REACH. BED IN LOWEST POSITION, BED RAILS UP X2
--- NOTE | 2021-02-20 08:51 | NUR ---
PT ABLE TO WALK TO WHEELCHAIR IN ROOM, WHEELED OUT TO BE DC. PT GIVEN BUS PASS. PT STATES HE IS GOING TO [facility]
== END 2021-02-20 08:53 | disposition home or self-care (01) ==
LOC: ED 04:00
DX: M25.511 Pain in right shoulder (principal); F10.229 Alcohol dependence with intoxication, unspecified; M25.551 Pain in right hip; I10 Essential (primary) hypertension; I48.91 Unspecified atrial fibrillation; Z87.891 Personal history of nicotine dependence; Y90.0 Blood alcohol level of less than 20 mg/100 ml
CPT/HCPCS: 99281